=== PATIENT | male | born 1945 | race American Indian/Alaskan Native ===

== ENCOUNTER 2018-10-20 08:43 | Outpatient (CLI) | payer MEDICARE, OTHER ==
--- NOTE | 2018-10-21 08:19 | Magnetic Resonance Report ---
MR LOWER EXTREMITY JOINT RIGHT WITHOUT CONTRAST HISTORY: Osteomyelitis TECHNIQUE: Multisequence, multiplanar MRI without IV gadolinium. COMPARISON: MRI right foot dated 10/27/14. FINDINGS: A vitamin E marker has been placed on the plantar surface of the heel. Underlying this area, there is a large area of absent or destroyed bone in the calcaneus measuring up to 2.6 x 2.0 x 2.6 cm. This area of bony destruction appear stable in size since the previous MRI dated 10/27/14. Also, bone marrow edema and decreased T1 signal surrounding this cavity has resolved since the previous exam. This cavity appears to be filled with granulation tissue. No convincing abnormal bony signal is identified in the calcaneus on today's exam to suggest new acute osteomyelitis. The bone marrow signal throughout the remaining visualized ankle and foot are within normal limits. No evidence for bone lesion, fracture or erosive joint pathology. There is skin thickening overlying the calcaneal defect but no evidence for abscess. The visualized musculotendinous structures are intact. No joint effusion is identified at the ankle. IMPRESSION: The calcaneus is abnormal and contains a rather large cavity or area of bony destruction as outlined above. This cavity unchanged in size since 10/27/14 exam. There are no convincing findings of acute osteomyelitis on today's exam. Chronic osteomyelitis could be considered.
== END 2018-10-20 08:44 | disposition home or self-care (01) ==
LOC: MRI 08:43
PROVIDERS: ATTEND Podiatrist Foot & Ankle Surgery
DX: M86.071 Acute hematogenous osteomyelitis, right ankle and foot (principal); E78.00 Pure hypercholesterolemia, unspecified; I10 Essential (primary) hypertension; K21.9 Gastro-esophageal reflux disease without esophagitis; Z87.891 Personal history of nicotine dependence